=== PATIENT | male | born 1975 | race American Indian/Alaskan Native ===

== ENCOUNTER 2021-01-19 19:09 | Emergency (ER) | payer BC ==
[2021-01-19] MEDS ORDERED: TETANUS,DIPH,PERTUSS(ACELL) VACCINE 0.5 ML SYRINGE IM ONE (19:16)
[2021-01-19 19:35] VITALS: BP 132/68
--- NOTE | 2021-01-19 19:54 | XRay Report ---
LEFT HAND 3 VIEWS 192 INDICATION: laceration left pinky finger, cut by keara estrada COMPARISON: None available. FINDINGS: Little finger is bandaged. No fractures or dislocations are seen. No obvious soft tissue fo reign bodies are noted. Mild lateral wrist arthritic changes are seen. Signer Name: Yuriy Foley MD Signed: 01/19/2021 7:50 PM Workstation Name: [id number]
--- NOTE | 2021-01-19 21:18 | Emergency Department Report ---
ED Laceration HPI - HPI Chief Complaint: Wound/Laceration Stated Complaint: LT PINKY FINGER CUT BAD Time Seen by Provider: 01/19/21 19:15 Occurred When: Today Location: Upper Extremity Severity: mild Tetanus Status: Not up to Date Laceration Symptoms: Yes Pain, No Foreign Body Sensation, No Numbness, No Weakness Other History: This is a 45-year-old male nontoxic, well nourished in appearance, no acute signs of distress presents to the ED with c/o of left 5th finger laceration that occurred prior to arrival while cutting a tree with a chainsaw. Patient denies decreased sensation or range of motion. Patient stated bleeding is under control. Denies any numbness, tingling, fever, chills, nausea, vomiting, chest pain, shortness of breath, headache or stiff neck. Patient denies any allergies to significant past medical history. Patient is that he is not up-to-date with tetanus. ED Review of Systems ROS: Stated complaint: LT PINKY FINGER CUT BAD Other details as noted in HPI Constitutional: denies: chills, fever Eyes: denies: eye pain, eye discharge, vision change ENT: denies: ear pain, throat pain Respiratory: denies: cough, shortness of breath, wheezing Cardiovascular: denies: chest pain, palpitations Endocrine: no symptoms reported Gastrointestinal: denies: abdominal pain, nausea, diarrhea Genitourinary: denies: urgency, dysuria Musculoskeletal: denies: back pain, joint swelling, arthralgia Skin: denies: rash, lesions Neurological: denies: headache, weakness, paresthesias Psychiatric: denies: anxiety, depression Hematological/Lymphatic: denies: easy bleeding, easy bruising ED Past Medical Hx - Medications Home Medications: Home Medications Medication Instructions Recorded Confirmed Last Taken Type Acetaminophen/Codeine [Tylenol 1 tab PO Q6H PRN #12 tab 01/19/21 Unknown Rx /Codeine # 3 tab] cephALEXin [Keflex] 500 mg PO Q8HR #21 cap 01/19/21 Unknown Rx Laceration Physical Exam - Exam General: Vital signs noted. No distress. Alert and acting appropriately. GENERAL: The patient is a well-developed, well-nourished in no apparent distress. Patient is alert and acting appropriately for age. Alert and oriented 3, no apparent distress, normal gait, atraumatic. EXTREMITIES: Without any cyanosis, clubbing, rash, or edema. Peripheral pulses intact. Capillary refill less than 2 seconds. Full range of motion bilaterally. Neurovascular within normal limits. Wound Length (cm): 4 (Irregular to left fifth mid finger) Laceration Location: Upper Extremity Laceration Exam: Yes Normal Distal CMS, No Foreign Body, No Exposed Tendon, Vessel, or Nerve, No Tendon Injury ED Course Vital Signs 01/19/21 19:13 Temperature 98.6 F Pulse Rate 117 H Respiratory 18 Rate Blood Pressure 132/68 O2 Sat by Pulse 98 Oximetry Vital Signs 01/19/21 01/19/21 19:13 22:08 Temperature 98.6 F Pulse Rate 117 H 79 Respiratory 18 17 Rate Blood Pressure 132/68 O2 Sat by Pulse 98 97 Oximetry - Reevaluation(s) Reevaluation #1: 01/19/21 21:15 Patient is speaking in full sentences with no signs of distress noted. Reevaluation #2: 01/19/21 21:39 Patient requested for pain medications. Ordered [place]. Patient stated family will drive patient home after discharge due to possible drowsiness. - Laceration /Wound Repair Left Finger Wound Location: upper extremity (Left fifth finger) Wound Length (cm): 4 Wound's Depth, Shape: irregular Wound Explored: clean Irrigated w/ Saline (ccs): 40 Betadine Prep?: Yes Volume Anesthetic (ccs): 6 (2% lidocaine plain) Wound Repaired With: sutures Suture Size/Type: 4:0 Number of Sutures: 11 Layer Closure?: No Sterile Dressing Applied?: Yes Progress: Under sterile field, I used Betadine to clean the area. I then used 40 mL of normal saline to flush the area. I then used 2% lidocaine plain and injected 6 mL to the wound. I then used a 4-0 Prolene to suture the laceration. Number of stitches 11. I then applied a sterile 4 x 4 with tape. Minimal bleeding noted but is under control. Patient tolerated procedure well with no signs of distress. ED Medical Decision Making - Radiology Data [facility] [address] [place] [address] XRay Report Signed Patient: DA GIFFORD MR#: [id number] : 1975 Acct:[id number] Age/Sex: 45 / M ADM Date: 01/19/21 Loc: ED Attending Dr: Ordering Physician: BUD MAYERS Date of Service: 01/19/21 Procedure(s): XR hand 3+V LT Accession Number(s): [id number] cc: BUD MAYERS Fluoro Time In Minutes: LEFT HAND 3 VIEWS 1928 INDICATION: laceration left pinky finger, cut by keara estrada COMPARISON: None available. FINDINGS: Little finger is bandaged. No fractures or dislocations are seen. No obvious soft tissue foreign bodies are noted. Mild lateral wrist arthritic changes are seen. Signer Name: Yuriy Foley MD Signed: 01/19/2021 7:50 PM Workstation Name: [id number] Transcribed By: GJ Dictated By: Yuriy Foley MD Electronically Authenticated By: Yuriy Foley MD Signed Date/Time: 01/19/211949 DD/ 48 TD/TT: - Medical Decision Making This is a 45-year-old male that presents with laceration. Patient is stable and was examined by me. The laceration suturing has been performed and has been performed and patient tolerated well. A sterile dressing has been applied. Patient was educated on proper wound care. Patient received a tetanus booster in ER. Patient is discharged with Keflex and Tylenol with codeine and was instructed not to operate any machinery while taking Tylenol with codeine due to drowsiness. Patient was instructed to return in 10 days for suture removal. Patient was instructed to refer to Follow-up with a primary care doctor in 3-5 days or if symptoms worsen and continue return to emergency room as soon as possible. At time of discharge, the patient does not seem toxic or ill in appearance. No acute signs of distress noted. Patient agrees to discharge treatment plan of care. No further questions noted by the patient. Critical care attestation.: If time is entered above; I have spent that time in minutes in the direct care of this critically ill patient, excluding procedure time. ED Disposition Clinical Impression: Laceration of left little finger Qualifiers: Encounter type: initial encounter Damage to nail status: without damage Foreign body presence: without foreign body Qualified Code(s): S61.217A - Laceration without foreign body of left little finger without damage to nail, initial encounter Disposition: HOME / SELF CARE / HOMELESS Is pt being admited?: No Does the pt Need Aspirin: No Condition: Stable Instructions: Laceration Care, Adult Additional Instructions: Follow-up with a primary care doctor in 3-5 days or if symptoms worsen and continue return to emergency room as soon as possible. Do not operate any machinery while taking Tylenol with codeine as this may cause drowsiness. Return in 10 days for suture removal. Prescriptions: cephALEXin [Keflex] 500 mg PO Q8HR #21 cap Acetaminophen/Codeine [Tylenol /Codeine # 3 tab] 1 tab PO Q6H PRN #12 tab PRN Reason: Pain , Severe (7-10) Referrals: PRIMARY CAREMD [Referring] - 3-5 Days BASSAM CHARLTON MD [Staff Physician] - 3-5 Days Time of Disposition: 21:19
[2021-01-19] MEDS ORDERED: HYDROcodone/ACETAMINOPHEN 10-325MG TAB PO ONE (21:39)
== END 2021-01-19 22:08 | disposition home or self-care (01) ==
LOC: ED 19:09
DX: S61.217A Laceration without foreign body of left little finger without damage to nail, initial encounter (principal); W45.8XXA Other foreign body or object entering through skin, initial encounter; Y93.89 Activity, other specified; Y92.89 Other specified places as the place of occurrence of the external cause; Y99.8 Other external cause status
CPT/HCPCS: 90471; 90714; 99283